=== PATIENT | female | born 1990 ===

== ENCOUNTER 2017-08-09 22:48 | Emergency (ER) | payer SELFPAY ==
[2017-08-09 23:03] VITALS: BP 122/71; PULSE 72; RESP 16; TEMP 97.6; O2SAT 100
--- NOTE | 2017-08-09 23:12 | ED PDOC ---
HPI: Abdomen Time Seen by Provider: 08/09/17 23:11 Chief Complaint (Nursing): Abdominal Pain Chief Complaint (Provider): abd pain History Per: Patient, Credit Charge Authorizer (Mallory Chapin at bedside for bedside translation ) Additional Complaint(s): 27-year-old female with no past medical history presents to emergency department with cramping abdominal pain and vaginal bleeding that started 2 days ago. Patient takes control pills and states that she is currently mid cycle and is not due for her period for 2 weeks. She does not know if she is . She denies any vaginal discharge or dysuria. No fever or chills. Patient has mild nausea with no vomiting. She is tolerating liquids and solids. She rates current pain as 5/10. PMD: none Past Medical History Reviewed: Historical Data, Nursing Documentation, Vital Signs Vital Signs: Last Vital Signs Temp 97.6 F 08/09/17 22:59 Pulse 72 08/09/17 22:59 Resp 16 08/09/17 22:59 BP 122/71 08/09/17 22:59 Pulse Ox 100 08/09/17 23:12 - Medical History PMH: No Chronic Diseases - Surgical History Surgical History: No Surg Hx - Family History Family History: States: No Known Family Hx - Living Arrangements Living Arrangements: With Family - Social History Current smoker - smoking cessation education provided: No Alcohol: Social Drugs: Cannabis - Allergies Allergies/Adverse Reactions: Allergies Allergy/AdvReac Type Severity Reaction Status Date / Time No Known Allergies Allergy Verified 08/09/17 22:59 Review of Systems ROS Statement: Except As Marked, All Systems Reviewed And Found Negative Constitutional: Negative for: Fever Respiratory: Negative for: Cough Gastrointestinal: Positive for: Nausea, Abdominal Pain. Negative for: Vomiting , Diarrhea Genitourinary Female: Positive for: Vaginal Bleeding. Negative for: Dysuria, Frequency, Incontinence, Hematuria, Vaginal Discharge Physical Exam - Reviewed Nursing Documentation Reviewed: Yes Vital Signs Reviewed: Yes - Physical Exam Appears: Positive for: Well, Non-toxic, No Acute Distress Skin: Negative for: Rash Eye Exam: Positive for: Normal appearance Cardiovascular/Chest: Positive for: Regular Rate, Rhythm Respiratory: Positive for: Normal Breath Sounds. Negative for: Respiratory Distress Gastrointestinal/Abdominal: Positive for: Soft. Negative for: Tenderness, Distended, Guarding, Rebound Extremity: Positive for: Normal ROM Neurologic/Psych: Positive for: Alert, Oriented - Laboratory Results Urine POC: Negative Urine dip results: Negative for: Leukocyte Esterase, Blood, Nitrate, Ketones, Glucose, Bilirubin, Protein - ECG O2 Sat by Pulse Oximetry: 100 Pulse Ox Interpretation: Normal Medical Decision Making Medical Decision Makin-year-old female with vaginal bleeding. Plan: Urine dip Urine test Motrin dose - patient reports improvement in pain after Motrin given test and dip are negative. With breakthrough bleeding currently on control pills. She was referred to women's clinic for follow-up and was advised she may need to have control pills switched to regulate menses. Patient verbalized understanding of the need for close follow-up. She was instructed to take NSAIDs for pain as needed. Disposition - Clinical Impression Clinical Impression: Abnormal vaginal bleeding - Patient ED Disposition Is Patient to be Admitted: No Counseled Patient/Family Regarding: Studies Performed, Diagnosis, Need For Followup - Disposition Referrals: [facility] [Outside] Disposition: Routine/Home Disposition Time: 00:14 Condition: STABLE Additional Instructions: Tylenol or Advil for pain as needed. Follow-up with women's clinic. Instructions: Dysfunctional Uterine Bleeding (ED) Forms: [facility] ([place]) Print Language: BERMUDIAN
== END 2017-08-10 00:22 | disposition home or self-care (01) ==
LOC: H.ER 22:48
DX: N93.8 Other specified abnormal uterine and vaginal bleeding (principal)